=== PATIENT | female | born 1990 | race Two or more races ===

== ENCOUNTER 2017-10-31 22:28 | Emergency (ER) | payer OTHER ==
[~2017-10-31] VITALS: Ht 157.5 cm; Wt 54.4 kg
[2017-10-31 22:41] VITALS: BP 137/76
== END 2017-10-31 22:51 | disposition left against medical advice (07) ==
LOC: EDBD 22:28 → ER 22:38
DX: R11.2 Nausea with vomiting, unspecified (principal); T36.0X5A Adverse effect of penicillins, initial encounter; Y92.89 Other specified places as the place of occurrence of the external cause; Z53.21 Procedure and treatment not carried out due to patient leaving prior to being seen by health care provider